=== PATIENT | female | born 1960 | race Caucasian/White ===

== ENCOUNTER 2023-01-25 13:25 | Emergency (ER) | payer BC ==
--- OUTSIDE RECORDS SUMMARY | 2023-01-25 13:31 | XMS REPORT | Continuity of Care Document ---
:1960 Author Organization [facility] t Address [address] [address] [place] [address] Care Team Providers Name Role Phone Bg Mccullough Attending Clinician Unavailable Bg Cordero Attending Clinician Unavailable Maurice Arenas Attending Clinician Unavailable Vasquez Powers Attending Clinician Unavailable Payers Payer Name Policy Type Policy Number Effective Date Expiration Date S ource Problems This patient has no known problems. Allergies, Adverse Reactions, Alerts Allergy Allergy Status Severity Reaction(s) Onset Inactive Treating Comm ents Source Name Type Date Date Clinician gluten DA Active [facility] Rafal Daniels wheat DA Active [facility] 00[facility] Rafal Daniels No Known DA Active U [facility]12 s 00:00: 00 Medications This patient has no known medications. Vital Signs Vital Name Observation Time Observation Value Comments Source Body Mass Index (BMI) 2021-06-04 21:15:29 22.4 Height 2021-06-04 21:15:29 65 Weight 2021-06-04 21:15:29 2160 Body Mass Index (BMI) 2021-06-04 17:45:44 22.4 Height 2021-06-04 17:45:44 65 Weight 2021-06-04 17:45:44 2160 Body Mass Index (BMI) 2021-06-04 17:42:53 22.4 Height 2021-06-04 17:42:53 65 Weight 2021-06-04 17:42:53 2160 Body Mass Index (BMI) 2021-06-04 17:41:27 22.4 Height 2021-06-04 17:41:27 65 Weight 2021-06-04 17:41:27 2160 Body Mass Index (BMI) 2021-06-04 17:37:18 22.4 Height 2021-06-04 17:37:18 65 Weight 2021-06-04 17:37:18 2160 WEIGHT 2021-02-03 12:38:00 61.18514 kg HEIGHT 2021-02-03 12:38:00 165.1 cm Procedures This patient has no known procedures. Encounters Start End Encounter Admission Attending Care Care Encounter Source Date/Time Date/Time Type Type Clinicians Facility Department ID 2021-02-04 2021-02-04 Outpatient CONCHITA Mccullough [facility] [id number] [facility] 11:30:00 11:30:00 Bg [id number] 2021-02-01 2021-02-01 Outpatient CONCHITA Cordero [facility] [id number] [facility] 11:30:00 11:30:00 Bg [id number] 2021-01-21 2021-01-21 Outpatient CONCHITA Mccullough [facility] [id number] [facility] 11:00:00 11:00:00 Bg [id number] 2021-01-14 2021-01-14 Inpatient Alonso Arenas [facility] [id number] 16:30:00 16:30:00 Maurice [id number] Bubba Nuñez 2019-08-15 2019-08-15 Outpatient Vasquez Colon [facility] [id number] [facility] 16:33:00 16:34:00 [id number] Bubba Nuñez Results Test Description Test Time Test Comments Results Result Comments Source NM Hida Scan W Drug Nam e: NILDA LUNDBERG : 1960 Sex: F I [facility] Pt Name: NILDA LUNDBERG [address] [facility] Phys: [place] [address] : 1960 Age: 60 SEX:F Exam Date: 01/21/21 Status: REG CLI Acct: [id number] Loc: [facility] Pt Unit #: [id number] Report #: [id number] CC: Bg Mccullough MD NUCLEAR MEDICINE REPORT Order # Category/Exam [id number] NM/NM Hida Scan W Drug ([id number]): . Results HEPATOBILIARY SCAN: HISTORY:Right upper quadrant pain. No gallstones on ultrasound of 01/11/2021 RADIOPHARMACEUTICAL: 5.4 mCi Technetium 99m Mebrofenin injected intravenously FINDINGS: There is normal tracer extraction by the liver with normal excretion into the biliary tracts and small bowel loops and normal filling of the gallbladder. The calculated gallbladder ejection fraction following an oral fatty meal measures 46%. IMPRESSION:Normal exam. Reported By: Vikas Epps MD Electronically Signed Date/Time: 01/21/21 125 Technologist: SUDHA Dictated Date/Time: 01/21/21 1257 Transcribed Date/Time: CHEST PA LAT [facility] Pt Name: NILDA LUNDBERG Phys: Vasquez Powers DO , : 1960 Age: 59 SEX:F Exam Date: 08/15/19 Status: REG REF Acct: [id number] Loc: [facility] Pt Unit #: [id number] Report #: [id number] CC: Vasquez Powers DO [facility] REPORT Order # Category/Exam [id number] [facility]/CHEST PA LAT ROUTINE ([id number]): . Results EXAM: Two views chest PROVIDED CLINICAL HISTORY: Cough COMPARISON: None FINDINGS: Cardiac silhouette and pulmonary vasculature are within normal limits. The lungs are clear. The osseous structures have a normal appearance. IMPRESSION: No acute cardiopulmonary process. Reported By: Yousuf Aguilar MD Electronically Signed Date/Time: 08/15/191641 Technologist: PATRICIA Dictated Date/Time: 08/15/191640 Transcribed Date/Time: Notes Date/Time Note Provider Source 2021-02-04 08:23:00-00:00 [facility] Na me: NILDA LUNDBERG John [facility] [address] [facility] : 1960, Age: 60, S ex: [place] [address] Unit #: [id number], St atus: REG [facility] Location: [facility] Report Dict DrRosetta: Bg Mccullough MD Admission Date: Report #: [id number] Discharge Date: CC: Operative Note Operative Note - Operative Note Operative Note: Date of operation-04 February 2021 Preoperative diagnosis-biliary dyskinesia Postoperative diagnosis-same Operation-[robotically assisted laparoscopic cho lecystectomy] Specimen-[gallbladder] EBL-[minimal] Complications-[none] Sponge and needle count were correct x2 Indication for procedure-the patient is a 60-year-old female who presents for robotically assisted laparoscopic cholecystectomy secondary to biliar y dyskinesia. After written preoperative i nformed consent, the patient was brought to the operating room, placed in the supine position and i ntubated. The abdomen was prepared and draped in sterile fashion. A timeout was performed. The direct optical entry nicholas hnique was used in the left mid abdomen. Pneumoperitoneum was established. The underlying viscera was inspected and there was no damage noted. A 12 mm trocar was placed at the umbilicus and 2 additional 8 mm trochars were placed in the right mid and right lateral abdominal wall. The original 5 mm trocar was exchanged for an 8 mm trocar. The robot was brought in and docked. Instr uments were brought in under direct visualization. I proceeded to the console. The fundus of the gallbladde r was grasped and lifted over the dome of the liver. The gallbladder appeared somewhat thickened. There was some omentum overlying the fundus which needed to be taken down. The infundibulum was g rasped and retracted laterally. Dissection was carried out in the triangle of Calot until the cystic duct and artery were clearly identified and the critical view of safety was obtained. Clips w ere placed proximally and distally on the cystic duct and artery and they were divided. The gallb ladder was removed off of the gallbladder bed fossa utilizing electrocautery. The bed of d issection was inspected and there was no bleeding or bile staining noted. The gallbladder was left on the omentum a nd I returned to the field. The robotic instruments were removed and the robot was undocked. The specimen was then placed within an Endo Catch bag and removed via the umbilical port. The fascia at this location was reapproximated with 0 Vicryl suture utilizing a suture passer. All the incisions were irrigated and hemostasis was noted. The s kin was closed with Monocryl and surgical skin glue. The patient was then extubated and taken the postanesthesia care area in good condition having tolerated the procedure well <Electronically signed by Bg Mccullough MD> 0 02/04/21 [id number]
[2023-01-25] MEDS ORDERED: dexAMETHasone 10 MG/ML VIAL ONE (14:00)
[2023-01-25] MEDS ORDERED: CYCLOBENZAPRINE 10 MG TAB ONE (14:00)
[2023-01-25] MEDS ORDERED: MORPHINE 4 MG/ML SYR ONE (14:00)
[2023-01-25] MEDS ORDERED: NA CHLORIDE 0.9% 1,000 ML ONE (14:00)
--- NOTE | 2023-01-25 14:29 | RAD REPORT ---
EXAM DESCRIPTION: CT - Stone Protocol - 01/25/2023 1:55 pm CLINICAL HISTORY: back pain COMPARISON: No comparisons TECHNIQUE: Thin cut axial CT imaging of the abdomen and pelvis was performed without IV contrast. Mu ltiplanar reformats were generated and reviewed. All CT scans are performed using dose optimization technique as appropriate and may include automated exposure control or mA/KV adjustment according to patient size. FINDINGS: No suspicious findings in the lung bases. The liver, spleen, and pancreas show no suspicious findings. Gallbladder was surgically removed. No e vidence of intra or extrahepatic biliary ductal dilation. Symmetric renal contour, without suspicious parenchymal findings within limits of noncontrast techniq ue. No evidence of radiopaque calculi or hydroureteronephrosis. No dilated bowel loops or bowel wall thickening. No free air, free fluid or inflammatory stranding. N o hernia, mass or bulky lymphadenopathy. The urinary bladder is nondistended, limiting evaluation. No suspicious bony findings. IMPRESSION: No acute intra-abdominal process. Status post cholecystectomy.
[2023-01-25 14:44] LABS: Albumin 3.8 g/dL (3.4-5.0); Bilirubin Total 0.6 mg/dL (0.2-1.0); Potassium 3.9 mEq/L (3.5-5.1)
[2023-01-25 14:49] LABS: Absolute Lymphocytes (CBC) 1.5 K/uL (0.7-4.9); Lymphocytes % 23.9 % (15.3-44.8); MCV 90.7 fL (80-100); MPV 7.4 fL (7.6-11.3); RBC Red Blood Cell Count 4.41 M/uL (3.86-4.86)
[2023-01-25] MEDS ORDERED: KETOROLAC 30 MG/ML INJ ONE (14:58)
[2023-01-25] MEDS ORDERED: HYDROMORPHONE HCL 1 MG/ML INJ ONE (14:58)
[2023-01-25 16:02] LABS: Specific Gravity 1.017 (1.005-1.030); Urine Bilirubin NEGATIVE (Negative); Urine Blood Negative (Negative); Urine Clarity Clear (Clear); Urine Color Light-Yellow (Yellow); Urine Glucose NEGATIVE (Negative); Urine Protein NEGATIVE (Negative); Urine Urobilinogen Normal (Normal); Urine pH 5.5 (5.0-7.0)
--- NOTE | 2023-01-25 16:19 | EDPHYS ---
Physician Documentation [facility] Name: Priscila Alonso Age: 62 yrs Sex: Female : 1960 Arrival Date: 01/25/2023 Time: 13:25 Bed 10 Private MD: ED Physician Leonidas Magana HPI: 01/25 14:26 This 62 yrs old Female presents to ER via Ambulatory with complaints of Back Pain. rn 14:26 The patient presents with pain that is acute. The symptoms are located in the low back. rn Onset: The symptoms/episode began/occurred yesterday. The pain radiates to the right leg and left leg. Associated signs and symptoms: Pertinent negatives: abdominal pain, chest pain, constipation, dysuria, fever, hematuria, incontinence, urinary retention, weakness. Modifying factors: The patient symptoms are alleviated by nothing, the patient symptoms are aggravated by sitting and movement. Severity of symptoms: At their worst the symptoms were moderate, in the emergency department the symptoms are unchanged. The patient has not experienced similar symptoms in the past. The patient has not recently seen a physician. Pt reports low back pain, began yesterday, no trauma, no fever/vomiting/diarrhea. NO abd pain. Has had kidney stones before but this feels different. Also has chronic back problems with injections and shots, states this feels more like her back problems than her kidney stone. No recent procedure. . Historical: - Allergies: 13:52 Wheat/glutens; nj1 - PMHx: 13:52 None; nj1 - PSHx: 13:52 Shoulder surgery; Finger surgery; nj1 15:03 Cholecystectomy; kc6 - Immunization history:: Client reports having NOT received the Covid vaccine. - Social history:: Smoking status: Patient denies any tobacco usage or history of. - Family history:: not pertinent. - Hospitalizations: : No recent hospitalization is reported. ROS: 14:26 Constitutional: Negative for fever, chills, and weight loss, Cardiovascular: Negative rn for chest pain, palpitations, and edema, Respiratory: Negative for shortness of breath, cough, wheezing, and pleuritic chest pain, Abdomen/GI: Negative for abdominal pain, nausea, vomiting, diarrhea, and constipation, Back: + back pain : Negative for injury, bleeding, discharge, and swelling, MS/Extremity: Negative for injury and deformity, Skin: Negative for injury, rash, and discoloration, Neuro: Negative for headache, weakness, and seizure. Exam: 14:26 Constitutional: This is a well developed, well nourished patient who is awake, alert, external relations manager but appears uncomfortable, does not want to sit. Head/Face: Normocephalic, atraumatic. Cardiovascular: Regular rate and rhythm. No pulse deficits. Respiratory: No increased work of breathing, no retractions or nasal flaring. Abdomen/GI: Soft, non-tender Back: No spinal tenderness. No costovertebral tenderness. Skin: Warm, dry MS/ Extremity: Pulses equal, no cyanosis. Neuro: Awake and alert, GCS 15, oriented to person, place, time, and situation. Cranial nerves II-XII grossly intact. Motor strength 5/5 in all extremities. Sensory grossly intact. Cerebellar exam normal. Antalgic gait. Vital Signs: 13:37 BP 144 / 62; Pulse 61; Resp 18; Pulse Ox 95% on R/A; Weight 62.6 kg; Height 5 ft. 5 in. nj1 ; Pain 10/10; 13:37 Body Mass Index 22.96 (62.60 kg, 165.1 cm) nj1 13:37 Pain Scale: Adult nj1 MDM: 13:27 Patient medically screened. rn 16:16 Differential diagnosis: arthritis, chronic back pain, Hydronephrosis Osteoarthritis rn Pyelonephritis sprain, Ureterolithiasis radiculopathy. Data reviewed: vital signs, nurses notes, lab test result(s), radiologic studies, CT scan, and as a result, I will discharge patient. Counseling: I had a detailed discussion with the patient and/or guardian regarding: the historical points, exam findings, and any diagnostic results supporting the discharge/admit diagnosis, lab results, radiology results, the need for outpatient follow up, to return to the emergency department if symptoms worsen or persist or if there are any questions or concerns that arise at home. Special discussion: I discussed with the patient/guardian in detail that at this point there is no indication for admission to the hospital. It is understood, however, that if the symptoms persist or worsen the patient needs to return immediately for re-evaluation. ED course: CT without acute findings, patient much more comfortable and thankful, requests pain management referral because used to go to pain management in [place]. Also gave her info for Dr. North, spine. . 01/25 13:45 Order name: CBC with Diff; Complete Time: 15:49 rn 01/25 13:45 Order name: CMP; Complete Time: 15:49 rn 01/25 13:45 Order name: Lipase; Complete Time: 15:49 rn 01/25 13:45 Order name: Urinalysis w/ reflexes; Complete Time: 16:05 rn 01/25 13:45 Order name: CT Stone Protocol; Complete Time: 14:31 rn 01/25 13:45 Order name: IV Saline Lock; Complete Time: 14:15 rn 01/25 13:45 Order name: Labs collected and sent; Complete Time: 14:15 rn Administered Medications: 14:15 Drug: NS 0.9% IV 1000 ml Route: IV; Rate: 1 bolus; Site: right antecubital; kc6 14:56 Follow up: Response: No adverse reaction; IV Status: Completed infusion; IV Intake: kc6 1000ml 14:16 Drug: morphine IVP or IV 4 mg Route: IVP; Infused Over: 4 mins; Site: right antecubital;kc6 14:56 Follow up: Response: No adverse reaction; Pain is unchanged, physician notified; RASS: kc6 Alert and Calm (0) 14:16 Drug: Decadron - Dexamethasone IVP 10 mg Route: IVP; Site: right antecubital; kc6 14:56 Follow up: Response: No adverse reaction kc6 14:16 Drug: Cyclobenzaprine PO 10 mg Route: PO; kc6 14:56 Follow up: Response: No adverse reaction; Pain is unchanged, physician notified kc6 14:56 Drug: HYDROmorphone IVP 1 mg Route: IVP; Site: right antecubital; kc6 15:59 Follow up: Response: No adverse reaction; Pain is decreased; RASS: Alert and Calm (0) kc6 14:56 Drug: Ketorolac IVP 30 mg Route: IVP; Site: right antecubital; kc6 15:59 Follow up: Response: No adverse reaction; Pain is decreased kc6 Disposition Summary: 01/25/23 16:19 Discharge Ordered Location: Home rn Problem: new rn Symptoms: have improved rn Condition: Stable rn Diagnosis - Low back pain rn Followup: rn - With: Hernan Bergman MD - When: As needed - Reason: Recheck today's complaints, Re-evaluation by your physician Discharge Instructions: - Discharge Summary Sheet rn - Acute Back Pain, Adult rn - Musculoskeletal Pain rn Forms: - Medication Reconciliation Form rn - Thank You Letter rn - Antibiotic lpn rn - Prescription Opioid Use rn - [email or web address] rn Prescriptions: - Cyclobenzaprine 10 mg Oral Tablet - take 1 tablet by ORAL route every 8 hours As needed; 15 tablet; Refills: 0, rn Product Selection Permitted - Tramadol 50 mg Oral Tablet - take 1 tablet by ORAL route every 8 hours as needed; 12 tablet; Refills: 0, rn Product Selection Permitted - Medrol (Dominik) 4 mg Oral Tablets, Dose Pack - take 1 tablet by ORAL route as directed - follow package instructions; 1 rn packet; Refills: 0, Product Selection Permitted Signatures: Dispatcher [employer] Leonidas Joshi MD MD rn Campbell, Kaitlyn RN RN kc6 Bobbi Rivas RN RN nj1
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
[2023-01-25 16:44] VITALS: BP 144/62; O2SAT 95
== END 2023-01-25 16:31 | disposition home or self-care (01) ==
LOC: ER 13:25
DX: M54.50 Low back pain, unspecified (principal); Z87.442 Personal history of urinary calculi; Z91.018 Allergy to other foods
CPT/HCPCS: 96361; 85025; 36415; 81003; 83690; 80053; 76377; 74176; 96375; 96374; 99284; J1100; J1170; J7030

== ENCOUNTER 2024-08-26 19:03 | Emergency (ER) | payer BC ==
[2024-08-26] MEDS ORDERED: KETOROLAC 30 MG/ML INJ ONE (19:52)
--- NOTE | 2024-08-26 20:33 | RAD REPORT ---
EXAM: Foot Left 3 View HISTORY: PAIN COMPARISON: None FINDINGS: Bones: No acute fracture identified. Alignment:No significant malalignment. Degenerative changes:None significant. Other: n/a IMPRESSION: No evidence of acute osseous abnormality involving the imaged foot.
--- NOTE | 2024-08-26 20:50 | EDPHYS ---
Physician Documentation [facility] Name: Priscila Alonso Age: 64 yrs Sex: Female : 1960 Arrival Date: 08/26/2024 Time: 19:03 Bed 17 Private MD: ED Physician Walter Dave HPI: 08/26 20:49 This 64 yrs old Female presents to ER via Wheelchair with complaints of Foot Injury. kb 20:49 Patient is a 64-year-old female who presents for pain to top of left foot and left kb great toe after a mirror fell onto it this morning. Ambulatory with steady gait. Denies any other injury. States the pain has been getting worse throughout the day.. Historical: - Allergies: 19:20 Wheat/glutens; cm10 - PMHx: 19:20 None; cm10 - PSHx: 19:20 Cholecystectomy; finger surgery; shoulder surgery; cm10 - Immunization history:: Adult Immunizations up to date. - Infectious Disease History:: Denies. - Social history:: Smoking status: Patient denies any tobacco usage or history of. ROS: 20:49 Constitutional: As per HPI kb Exam: 20:49 Constitutional: This is a well developed, well nourished patient who is awake, alert, kb and in no acute distress. Head/Face: Normocephalic, atraumatic. ENT: Moist Mucous membranes Cardiovascular: Regular rate Respiratory: Respirations even and unlabored. No increased work of breathing. Talking in full sentences Abdomen/GI: Soft, non-tender. No distention Skin: Warm, dry with normal turgor. Normal color. Neuro: Awake and alert, GCS 15, oriented to person, place, time, and situation. 20:49 Musculoskeletal/extremity: Extremities: grossly normal except: noted in the dorsum of left foot and left first toe: pain, tenderness, ROM: intact in all extremities, Circulation is intact in all extremities. Sensation intact. Weight bearing: able to fully bear weight, Vital Signs: 19:17 BP 136 / 92; Pulse 84; Resp 15; Temp 97.7(O); Pulse Ox 95% ; Weight 63.5 kg; Height 5 cm10 ft. 4 in. ; Pain 10/10; 19:17 Body Mass Index 24.03 (63.50 kg, 162.56 cm) cm10 19:17 Pain Scale: Adult cm10 MDM: 19:11 Medical Screening Exam initiated kb 20:49 Differential diagnosis: closed fracture, contusion. Data reviewed: vital signs, nurses kb notes. Counseling: I had a detailed discussion with the patient and/or guardian regarding the historical points, exam findings, and any diagnostic results supporting the discharge/admit diagnosis, radiology results, the need for outpatient follow up, a family practitioner, to return to the emergency department if symptoms worsen or persist or if there are any questions or concerns that arise at home. 08/26 19:16 Order name: Foot Left 3 View XRAY; Complete Time: 20:42 ap3 Administered Medications: 19:59 Drug: Ketorolac IM 30 mg IM once Route: IM; Site: left gluteus; cm10 Disposition: 08/27 08:56 Co-signature as Attending Physician, Walter Dave MD I reviewed the patient's care rt provided by the Advanced Practice Provider and agree with the diagnosis and treatment plan. Disposition Summary: 08/26/24 20:50 Discharge Ordered Notes: Location: Home kb Condition: Stable kb Diagnosis - Contusion of left foot kb Followup: kb - With: Emergency Department - When: As needed - Reason: Worsening of condition Followup: kb - With: Private Physician - When: 2 - 3 days - Reason: Recheck today's complaints, Continuance of care, Re-evaluation by your physician Discharge Instructions: - Discharge Summary Sheet kb - Foot Contusion, [id number] kb Forms: - Medication Reconciliation Form kb - Antibiotic Education kb - Prescription Opioid Use kb - Patient Portal Instructions kb - Leadership Thank You Letter kb Prescriptions: - Diclofenac Sodium 75 mg Oral tablet, delayed release (enteric coated) - take 1 tablet ORAL route 2 times per day As needed; 30 tablet; Refills: 0, kb Product Selection Permitted Signatures: Dispatcher [employer] EDMS Tanisha Jackson FNP-C FNP-Ckb Prokisch, Amanda, RN RN ap3 Walter Dave MD MD rt Yovana Bowen RN RN cm10 Corrections: (The following items were deleted from the chart) 08/26 20:49 20:49 Patient is a 64-year-old female who presents for. kb kb
--- NOTE | 2024-08-26 20:50 | ER ---
Nurse's Notes [facility] Name: Priscila Alonso Age: 64 yrs Sex: Female : 1960 Arrival Date: 08/26/2024 Time: 19:03 Bed 17 Private MD: Diagnosis: Contusion of left foot Presentation: 08/26 19:17 Chief complaint: Patient states: mirror fell on left foot this morning. pt complaining cm10 of pain to top of left foot and to big toe. Coronavirus screen: Client denies travel out of the [place] in the last 14 days. Ebola Screen: Patient denies travel to an Ebola-affected area in the 21 days before illness onset. Initial Sepsis Screen: Does the patient meet any 2 criteria? No. Patient's initial sepsis screen is negative. Does the patient have a suspected source of infection? No. Patient's initial sepsis screen is negative. Risk Assessment: Do you want to hurt yourself or someone else? Patient reports no desire to harm self or others. Onset of symptoms was August 26, 2024. 19:17 Method Of Arrival: Wheelchair cm10 19:17 Acuity: SUGAR 4 cm10 Triage Assessment: 19:20 General: Appears uncomfortable, Behavior is calm, cooperative. Pain: Complains of pain cm10 in left foot Pain does not radiate. Pain currently is 10 out of 10 on a pain scale. Neuro: No deficits noted. Level of Consciousness is awake, alert, obeys commands, Oriented to person, place, time, situation, Appropriate for age. Respiratory: No deficits noted. Airway is patent Respiratory effort is even, unlabored, Respiratory pattern is regular, symmetrical. Historical: - Allergies: 19:20 Wheat/glutens; cm10 - PMHx: 19:20 None; cm10 - PSHx: 19:20 Cholecystectomy; finger surgery; shoulder surgery; cm10 - Immunization history:: Adult Immunizations up to date. - Infectious Disease History:: Denies. - Social history:: Smoking status: Patient denies any tobacco usage or history of. Screenin:32 [facility] ED Fall Risk Assessment (Adult) History of falling in the last 3 months, jb4 including since admission Confusion or Disorientation No (0 pts) Intoxicated or Sedated No (0 pts) Impaired Gait No (0 pts) Mobility Assist Device Used No (0 pt) Altered Elimination No (0 pt) Score/Fall Risk Level 0 - 2 = Low Risk Oriented to surroundings, Maintained a safe environment. Abuse screen: Denies threats or abuse. Nutritional screening: No deficits noted. Tuberculosis screening: No symptoms or risk factors identified. Assessment: 21:32 Reassessment: Patient appears in no apparent distress at this time. Patient and/or jb4 family updated on plan of care and expected duration. Pain level reassessed. Patient is alert, oriented x 3, equal unlabored respirations, skin warm/dry/pink. Vital Signs: 19:17 BP 136 / 92; Pulse 84; Resp 15; Temp 97.7(O); Pulse Ox 95% ; Weight 63.5 kg; Height 5 cm10 ft. 4 in. ; Pain 10/10; 19:17 Body Mass Index 24.03 (63.50 kg, 162.56 cm) cm10 19:17 Pain Scale: Adult cm10 ED Course: 19:07 Patient arrived in ED. mr 19:11 Tanisha Jackson F[facility]-C [facility]. kb 19:11 Walter Dave MD is Attending Physician. kb 19:20 Triage completed. cm10 19:20 Arm band placed on right wrist. Patient placed in waiting room. cm10 20:10 Foot Left 3 View XRAY In Process Unspecified. EDMS 21:32 Patient has correct armband on for positive identification. Bed in low position. Call jb4 light in reach. Side rails up X 1. Provided Education on: discharge instructions. 21:32 No provider procedures requiring assistance completed. Patient did not have IV access jb4 during this emergency room visit. Administered Medications: 19:59 Drug: Ketorolac IM 30 mg IM once Route: IM; Site: left gluteus; cm10 Medication: 21:32 VIS not applicable for this client. jb4 Outcome: 20:50 Discharge ordered by . kb 21:32 Discharged to home ambulatory, jb4 21:32 Condition: stable 21:32 Discharge instructions given to patient, Instructed on discharge instructions, follow up and referral plans. medication usage, Demonstrated understanding of instructions, follow-up care, medications, Prescriptions given X 1, 21:37 Patient left the ED. jb4 Signatures: Dispatcher [employer] EDSD Tanisha Jackson FNP-C FNP-Ckb Rivera, Mary Reg Reg mr [place], RN RN jb4 Yovana Bowen, RN RN cm10
--- OUTSIDE RECORDS SUMMARY | 2024-08-27 02:36 | XMS REPORT | Continuity of Care Document ---
Author Name Unknown Address [address] [facility] [address] [place] [address] [facility] thconnect Address [address] [place] [address] Care Team Providers Care Medical Records Secretary Name Role Phone PCP, PATIENT DOES NOT HAVE A Primary Care Physic deon Unavailable FAZAL GUILLEN Attending Clinician Unavailable LAB90 Attending Clinician Unavailable LUCRECIA PETERSON Attending Clinician Unava ilable GC_GCBZW_Kadiyala_S Attending Clinician Unavaila ludwin RADIOLOGY Attending Clinician Unavailable Radiology Attending Clinician Unavailable Bg Mccullough Attending Clinician Unavailable Bg Cordero Attending Clinician Sadie Foreman Attending Clinician Unavailable Vasquez Powers Attending Clinician Unavailable GC_GCBZW_Kadiyala_S Admitting Clinician UnavailSADIE Balbuena Admitting Clinician Unavailable Payers Payer Name Policy Type Policy Number Effective Date Expirati on Date Source BCBS 2 [id number] 2023 00:[place] [id number] 2018 00:00:00 [place] [id number] 2022 00:00:00 Problems Condition Name Condition Details Condition Category Status Onset Date Resolution Date Last Treatment Date Treating Clinician Comments Source Well adult exam Well adult exam Disease Active 12-18 00:00: 00 Lisa Seybold - Externa l Hypercalce omar Hypercalce omar Disease Active 12-18 00:00: 00 Lisa Seybold - Externa l Hypernatre omar Hypernatre omar Disease Active 12-18 00:00: 00 Lisa Seybold - Externa l Attention deficit hyperactiv ity disorder, predominan tly inattentiv e type Attention Deficit Hyperactiv ity Disorder, Predominan tly Inattentiv e Type Problem Active 10-18 00:00: 00 [facility] ADHD ADHD Disease Active 09-20 00:00: 00 Lisa Seybold - Externa l Celiac disease ([facility]) Celiac disease ([facility]) Disease Active 09-20 00:00: 00 Lisa Seybold - Externa l DDD (degenerat kim disc disease), lumbar DDD (degenerat kim disc disease), lumbar Disease Active 09-20 00:00: 00 Lisa Seybold - Externa l DDD (degenerat kim disc disease), cervical DDD (degenerat kim disc disease), cervical Disease Active 09-20 00:00: 00 Lisa Seybold - Externa l Vaginal dryness Vaginal dryness Disease Active 09-20 00:00: 00 Lisa Seybold - Externa l Hyperlipid emia Hyperlipid emia Disease Active 09-20 00:00: 00 Lisa Seybold - Externa l Asthma ([facility]) Asthma ([facility]) Disease Active 09-20 00:00: 00 Lisa Seybold - Externa l Allergies, Adverse Reactions, Alerts Allergy Name Allergy Type Status Severity Reaction(s) Onset Date Inactive Date Treating Clinician Comments Source gluten DA Active U 02-03 00:00: [address] [facility] wheat DA Active U 02-03 00:00: [address] [facility] No Known Allergie s DA Active U 02-07 00:00: 00 [facility] NO KNOWN ALLERGIE S Drug Class Active [facility] Social History Social Habit Start Date Stop Date Quantity Comments Source Sexual orientation Ingrid prudence Capone - External History of Occupation Lisa Capone - External ASSERTION Not Lisa Capone - External Gender identity [facility] Alcoholic beverage intake 2024-05-01 00:00:00 2024-05-01 00:00:00 Lifetime non-drinker (finding) Lisa Capone - External Tobacco use and exposure 2023-09-20 00:00:00 2023-09-20 00:00:00 Smokeless tobacco non-user Lisa Capone - External Alcohol intake 2023-09-20 00:00:00 2023-09-20 00:00:00 Lifetime non-drinker (finding) Lisa Capone - External History of Social function 2023-09-20 00:00:00 2023-09-20 00:00:00 Lisa Capone - External Education 2023-09-20 00:00:00 2023-09-20 00:00:00 18 Lisa Capone - External Sex 2023-09-12 15:55:34 2023-09-12 15:55:34 Female (finding) Lisa Capone - External Sex assigned at 1960 00:00:00 1960 00:00:00 Lisa Capone - External Smoking Status Start Date Stop Date Source Tobacco smoking consumption unknown [facility] Never smoked tobacco Lisa Capone - External Medications Ordered Medication Name Filled Medication Name Start Date Stop Date Current Medication? Ordering Clinician Indication Dosage Frequency Signature (SIG) Comments Components Source Albuterol (PROVENTIL) (2.5 MG/3ML) 0.083% inhalation Inhalant Solution 2023-07 00:00: 00 Yes [id number] 2.5mg Q.25D Take 2.5 mg by nebulizati on every 6 hours as needed for wheezing or shortness of breath. Lisa jean baptiste Nebulizers (Comp Air Compressor Nebulizer) [place] [facility] [place]-07 0-03 00:00: 00 Yes [id number] 1U Q.25D 1 unit by does not apply route 4 times daily as needed. Lisa jean baptiste Amphetamine -Dextroamph etamine 20 MG oral Capsule 24 Hour Sustained Release 9-09 00:00: 00 Yes [id number] 20mg Take 1 capsule (20 mg total) by mouth every morning. Lisa jean baptiste Levocetiriz ine Dihydrochlo ride 5 MG oral Tablet 12-18 00:00: 00 Yes [id number] 5mg Take 1 tablet (5 mg total) by mouth every day at 5:00 PM. Lisa jean baptiste Amphetamine -Dextroamph etamine 20 MG oral Capsule 24 Hour Sustained Release 12-18 00:00: 00 Yes [id number] 20mg Take 1 capsule (20 mg total) by mouth every morning. Lisa jean baptiste Montelukast (Singulair) 10 MG oral Tablet tablet 12-18 00:00: 00 05-01 00:00 :00 No [id number] 10mg QD Take 1 tablet (10 mg total) by mouth nightly. Lisa jean baptiste Amphetamine -Dextroamph etamine 10 MG oral Capsule 24 Hour Sustained Release 11-29 00:00: 00 12-18 00:00 :00 No [id number] 10mg Take 1 capsule (10 mg total) by mouth every morning. Lisa jean baptiste Azelastine & Fluticasone 137 & 50 MCG/ACT nasal Therapy Pack 4-11 00:00: 00 Yes [id number] 1{spray } Q.5D 1 spray by nasal route 2 times daily by nasal route.. Lisa jean baptiste lisdexamfet amine 40 mg capsule TAKE ONE (1) CAPSULE(S) BY MOUTH EVERY MORNING. lisdexamfet amine 40 mg capsule TAKE ONE (1) CAPSULE(S) BY MOUTH EVERY MORNING. 3-22 00:00: 00 No lisdexamfe tamine 40 mg capsule TAKE ONE (1) CAPSULE(S) BY MOUTH EVERY MORNING. [facility] Albuterol HFA 108 (90 Base) MCG/ACT IN AERS 09-20 00:00: 00 Yes [id number] 2{puff} Q.25D Inhale 2 puffs into the lungs every 6 hours as needed for wheezing or shortness of breath. Lisa Capone - Externa l Lisdexamfet amine Dimesylate 40 MG oral Capsule 09-20 00:00: 00 Yes [id number] 40mg Take 1 capsule (40 mg total) by mouth every morning. Lisa Capone - Hetala markel Albuterol HFA 108 (90 Base) MCG/ACT IN AERS 2022-07 00:00: 00 09-20 00:00 :00 No INHALE 1-2 PUFFS BY MOUTH EVERY 4 HOURS NEEDED FOR WHEEZE Lisa Capone - Hetala l Lisdexamfet amine Dimesylate 40 MG oral Capsule 2022-07 00:00: 00 09-20 00:00 :00 No TAKE ONE (1) CAPSULE BY MOUTH IN THE MORNING. Lisa Capone - Hetala l estradiol 0.01% (0.1 mg/gram) vaginal cream Insert 0.5 g 3 times a week by vaginal route at bedtime for 30 days. estradiol 0.01% (0.1 mg/gram) vaginal cream Insert 0.5 g 3 times a week by vaginal route at bedtime for 30 days. No .5g Q56H estradiol 0.01% (0.1 mg/gram) vaginal cream Insert 0.5 g 3 times a week by vaginal route at bedtime for 30 days. [facility] Medical Immunizations Ordered Immunization Name Filled Immunization Name Date Status Comments Source Shingles IM (Shingrix) Unknown Completed Lisa Capone - External AFLURIA TRIVALENT PF(0.5mL) Unknown Completed Lisa Capone - External Shingles IM (Shingrix) Unknown Completed Lisa Cookybtequila - External Shingles IM (Shingrix) Unknown Completed Lisa Capone - External Vital Signs Vital Name Observation Time Observation Value Comments S ource Systolic blood pressure 2024-05-01 19:14:00 126 mm[Hg] Lisa Seybo ld - External Diastolic blood pressure 2024-05-01 19:14:00 71 mm[Hg] Lisa Seybo ld - External Heart rate 2024-05-01 19:14:00 87 /min Kelse y Seybold - External Body temperature 2024-05-01 19:14:00 36.44 Carly Lisa Seybold - External Respiratory rate 2024-05-01 19:14:00 18 /min Lisa Seybold - External Body height 2024-05-01 19:14:00 165.1 cm Ginger ey Seybold - External Body weight 2024-05-01 19:14:00 65.772 kg Ginger ey Seybold - External BMI 2024-05-01 19:14:00 24.13 kg/m2 Ginger ey Seybold - External Oxygen saturation in Arterial blood by Pulse oximetry 2024-05-01 19:14:00 97 /min Lisa Seybo ld - External Systolic blood pressure 2023-12-19 13:53:00 126 mm[Hg] Lisa Seybo ld - External Diastolic blood pressure 2023-12-19 13:53:00 79 mm[Hg] Lisa Seybo ld - External Heart rate 2023-12-19 13:53:00 76 /min Kelse y Seybold - External Body temperature 2023-12-19 13:53:00 36.22 Carly Lisa Seybold - External Respiratory rate 2023-12-19 13:53:00 15 /min Lisa Seybold - External Body height 2023-12-19 13:53:00 165.1 cm Ginger ey Seybold - External Body weight 2023-12-19 13:53:00 63.957 kg Ginger ey Seybold - External BMI 2023-12-19 13:53:00 23.46 kg/m2 Ginger ey Seybold - External Oxygen saturation in Arterial blood by Pulse oximetry 2023-12-19 13:53:00 100 /min Lisa Seybo ld - External Height 2023-10-19 00:00:00 64.5 [in_i] [facility] BMI (Body Mass Index) 2023-10-19 00:00:00 24.5 kg/m2 [facility] Body Weight 2023-10-19 00:00:00 145 [lb_av] [facility] BP Diastolic 2023-10-19 00:00:00 74 mm[Hg] [facility] BP Systolic 2023-10-19 00:00:00 128 mm[Hg] [facility] Systolic blood pressure 2023-09-20 16:35:00 125 mm[Hg] Lisa Hammonds ld - External Diastolic blood pressure 2023-09-20 16:35:00 76 mm[Hg] Lisa Hammonds ld - External Heart rate 2023-09-20 16:35:00 98 /min Yahaira Capone - External Body temperature 2023-09-20 16:35:00 36.39 Carly Lisa Capone - External Respiratory rate 2023-09-20 16:35:00 15 /min Lisa Capone - External Body height 2023-09-20 16:35:00 165.1 cm Ginger arnold Seybtequila - External Body weight 2023-09-20 16:35:00 68.04 kg Ginger arnold Seybold - External BMI 2023-09-20 16:35:00 24.96 kg/m2 Ginger Capone - External Oxygen saturation in Arterial blood by Pulse oximetry 2023-09-20 16:35:00 100 /min Lisa shepherd - External Body Mass Index (BMI) 2021-06-04 21:15:29 22.4 [...] Weight 2021-06-04 17:37:18 2160 WEIGHT 2021-02-03 12:38:00 61.14965 kg HEIGHT 2021-02-03 12:38:00 165.1 cm Procedures Procedure Date / Time Performed Performing Clinicia n Source Cholecystectomy (Gallbladder) 2020-07-30 00:00:00 [facility] Operation on Fingernail 2009-07-30 00:00:00 [facility] Procedure on Shoulder 2004-07-30 00:00:00 [facility] Encounters Start Date/Time End Date/Time Encounter Type Admission Type Attending [facility] Care Department Encounter ID Source 2024-08-29 14:45:00 2024-08-29 14:45:00 Outpatient FAZAL GUILLEN [id number] [facility] 2024-08-04 00:00:00 2024-08-04 00:00:00 Outpatient FAZAL GUILLEN [id number] [facility] 2024-06-25 00:00:00 2024-06-25 00:00:00 Outpatient PREZAFAZAL Martinez [id number] [facility] 2024-06-23 00:00:00 2024-06-23 00:00:00 Outpatient CHANTEZAFAZAL Martinez [id number] [facility] 2024-05-21 00:00:00 2024-05-21 00:00:00 Outpatient FAZAL GUILLEN [id number] [facility] 2024-05-01 14:30:00 2024-05-01 14:30:00 Outpatient PREZAFAZAL Martinez [id number] [facility] 2024-04-07 00:00:00 2024-04-07 00:00:00 Outpatient FAZAL GUILLEN [id number] [facility] 2024-03-13 08:30:00 2024-03-13 08:30:00 Outpatient PREFAZAL LAZAR [id number] [facility] 2024-02-18 00:00:00 2024-02-18 00:00:00 Outpatient PREZAS, FAZAL VILLALBASEY [id number] [facility] 2024-02-12 00:00:00 2024-02-12 00:00:00 Outpatient PREZAS, FAZAL LA [id number] [facility] 2024-01-27 00:00:00 2024-01-27 00:00:00 Outpatient PREZAS, FAZAL LA LISA [id number] [facility] 2024-01-21 00:00:00 2024-01-21 00:00:00 Outpatient PREZAS, FAZAL LA LISA [id number] [facility] 2024-01-21 00:00:00 2024-01-21 00:00:00 Outpatient PREZAS, FAZAL [place] LISA [id number] [facility]24-[facility]-18 00:00:00 2024-01-18 00:00:00 Outpatient PREZAS, FAZAL LA LISA [id number] [facility] 2024-01-15 00:00:00 2024-01-15 00:00:00 Outpatient PREZAS, FAZAL LA LISA [id number] [facility] 2024-01-14 00:00:00 2024-01-14 00:00:00 Outpatient PREZAS, FAZAL LA LISA [id number] [facility] 2024-01-08 00:00:00 2024-01-08 00:00:00 Outpatient PREZAS, FAZAL LA LISA [id number] [facility] 2023-12-31 00:00:00 2023-12-31 00:00:00 Outpatient PREZAS, FAZAL LA LISA [id number] [facility] 2023-12-27 00:00:00 2023-12-27 00:00:00 Outpatient PREZAS, FAZAL LISA LISA [id number] [facility] 2023-12-21 00:00:00 2023-12-21 00:00:00 Outpatient PREZAS, FAZAL LISA LISA [id number] [facility] 2023-12-19 09:50:00 2023-12-19 09:50:00 Outpatient LAB90 LISA LA [id number] [facility] 2023-12-19 09:45:00 2023-12-19 09:45:00 Outpatient LABSidney [place] [id number] [facility] 2023-12-19 09:00:00 2023-12-19 09:00:00 Outpatient FAZAL GUILLEN LISA [id number] [facility] 2023-12-18 00:00:00 2023-12-18 00:00:00 Outpatient FAZAL GUILLENSEY [id number] [facility] 2023-12-14 15:10:00 2023-12-14 15:10:00 Outpatient LAB90 LISA VILLALBASEY [id number] [facility] 2023-11-30 00:00:00 2023-11-30 00:00:00 Outpatient FAZAL GUILLEN LISA [id number] [facility] 2023-11-29 00:00:00 2023-11-29 00:00:00 Outpatient FAZAL GUILLEN LISA [id number] [facility] 2023-11-08 00:00:00 2023-11-08 00:00:00 Outpatient NICHOLASLUCRECIA LISA [id number] [facility] 2023-11-06 00:00:00 2023-11-06 00:00:00 Outpatient FAZAL GUILLEN LISA [id number] [facility] 2023-10-19 00:00:00 2023-10-19 00:00:00 Outpatient GC_GCBZW_Ka sharifadmitriy_S [facility] [id number] [facility] 2023-10-19 00:00:00 2023-10-19 00:00:00 CHARLI Rodriguez: Rc Martinez, [address] [address], [place] [address] , Ph. [facility] - GC_GCBZW_Antoinette [facility]* [id number] [facility] 2023-09-27 00:00:00 2023-09-27 00:00:00 Outpatient GC_GCBZW_Ka diyala_S PRIV PRIV [id number] [facility] 2023-09-21 00:00:00 2023-09-21 00:00:00 Outpatient GC_GCBZW_Ka diyala_S PRIV PRIV [id number] [facility] 2023-09-20 10:30:00 2023-09-20 10:30:00 Outpatient FAZAL GUILLEN LISA LA [id number] [facility] 2023-09-20 10:00:00 2023-09-20 10:00:00 Outpatient LUCRECIA PETERSON LISA [place] [id number] Lisa [facility] 2023-03-09 13:33:23 2023-03-09 23:59:00 Outpatient R RADIOLOGY [facility] [id number] [facility] 2023-03-09 13:00:00 2023-03-09 23:59:00 Hospital Encounter Radiology [facility] [id number] [facility] 2021-02-04 11:30:00 2021-02-04 11:30:00 [id number] [facility] 2021-02-01 07:31:00 2021-02-01 07:32:00 Outpatient R Bg Cordero LSJX STJX [id number] ST[facility] 2021-01-21 11:00:00 2021-01-21 11:00:00 Outpatient Bg Mccullough STLSJX [facility] [id number] ST[facility]X 2021-01-14 16:30:00 2021-01-14 16:30:00 Inpatient R Sadie Arenas [facility] [id number] [facility] 16:33:00 2019-08-15 16:34:00 Outpatient R Vasquez Powers [facility] [id number] [facility] Results Test Description Test Time Test Comments Results Result Co mments Source NM Hida Scan W Drug * Nam e: NILDA LUNDBERG : 1960 Sex: F [facility] Pt Name: NILDA LUNDBERG [address] [facility] Phys: [place] [address] : 1960 Age: 60 SEX:F Exam Date: 01/21/21 Status: REG CLI Acct: [id number] Loc: [facility] Pt Unit #: [id number] Report #: [id number] CC: Bg Mccullough MD NUCLEAR MEDICINE REPORT Order # Category/Exam [id number] NM/NM Hida Scan W Drug ([id number]): . Results HEPATOBILIARY SCAN: HISTORY:Right upper quadrant [...] Vikas Epps MD Electronically Signed Date/Time: 01/21/21 1258 Technologist: SUDHA Dictated Date/Time: 01/21/21 1257 Transcribed Date/Time: CHEST PA LAT ROUTINE [facility] - Michelle Lyles Pt Name: NILDA LUNDBERG Phys: Vasquez Powers DO , : 1960 Age: 59 SEX:F Exam Date: 08/15/19 Status: REG REF Acct: [id number] Loc: [facility] Pt Unit #: [id number] Report #: [id number] CC: Vasquez Powers DO [facility] REPORT Order # Category/Exam [id number] [facility]/CHEST PA LAT ROUTINE ([id number]): . Results EXAM: Two views chest PROVIDED CLINICAL HISTORY: Cough COMPARISON: None FINDINGS: Cardiac silhouette and pulmonary vasculature are within normal limits. The lungs are clear. The osseous structures have a normal appearance. IMPRESSION: No acute cardiopulmonary process. Reported By: Yousuf Aguilar MD Electronically Signed Date/Time: 08/15/191641 Technologist: PATRICIA Dictated Date/Time: 08/15/19 1641 Transcribed Date/Time:
[2024-08-27 09:30] VITALS: BP 136/92; TEMP 97.7; O2SAT 95
== END 2024-08-26 21:37 | disposition home or self-care (01) ==
LOC: ER 19:03
DX: S90.32XA Contusion of left foot, initial encounter (principal); W22.8XXA Striking against or struck by other objects, initial encounter